=== PATIENT | female | born 1980 | race Caucasian/White ===

== ENCOUNTER 2018-06-24 10:17 | Inpatient (IN) | payer MEDICAID ==
[2018-06-24 11:50] LABS: ADD MAN DIFF? NO
[2018-06-24 11:54] LABS: BASOPHILS % 0.1 % (0.0-2.0); EOSINOPHILS % 0.3 % (0.0-7.0); HEMATOCRIT 36.1 % (37.0-47.0); HEMOGLOBIN 12.1 g/dl (12.0-16.0); LYMPHOCYTES # 1.4 10^3/ul (0.8-2.9); LYMPHOCYTES % 15.4 % (15.0-51.0); MEAN CORPUSCULAR HEMOGLOBIN 29.5 pg (29.0-33.0); MEAN CORPUSCULAR HGB CONC 33.5 g/dl (32.0-37.0); MEAN PLATELET VOLUME 12.5 fl (7.4-10.4); MONOCYTE # 0.5 10^3/ul (0.3-0.9); MONOCYTES % 6.1 % (0.0-11.0); NEUTROPHIL # 6.8 10^3/ul (1.6-7.5); NEUTROPHILS % 77.6 % (39.0-77.0); PLATELET COUNT 144 10^3/UL (140-415); RED CELL DISTRIBUTION WIDTH 13.6 % (11.5-14.5)
[2018-06-24 11:54] LABS: WHITE BLOOD COUNT 8.7 10^3/ul (4.8-10.8)
[2018-06-24 12:11] LABS: ALANINE AMINOTRANSFERASE 9 IU/L (13-69); ALBUMIN 3.4 g/dl (3.3-4.9); ALBUMIN/GLOBULIN RATIO 1.03; ALKALINE PHOSPHATASE 173 IU/L (42-121); ANION GAP 7 (5-13); ASPARTATE AMINO TRANSFERASE 23 IU/L (15-46); BILIRUBIN,INDIRECT 0.6 mg/dl (0-1.1); BILIRUBIN,TOTAL 0.6 mg/dl (0.2-1.3); BLOOD UREA NITROGEN 9 mg/dl (7-20); CALCIUM 9.4 mg/dl (8.4-10.2); CARBON DIOXIDE 24 mmol/L (21-31); CHLORIDE 107 mmol/L (97-110); CREATININE 0.47 mg/dl (0.44-1.00); Estimated GFR > 60 mL/min (>60); GLUCOSE 87 mg/dl (70-220); POTASSIUM 3.9 mmol/L (3.5-5.1); SODIUM 138 mmol/L (135-144); TOTAL PROTEIN 6.7 g/dl (6.1-8.1)
[2018-06-24 12:14] LABS: INR 0.95; PROTIME 12.8 Sec (11.9-14.9)
[2018-06-24 12:38] LABS: ADD UMIC YES; UR ASCORBIC ACID NEGATIVE (NEGATIVE); UR BACTERIA MODERATE /HPF (NONE SEEN); UR BILIRUBIN (Dip) NEGATIVE (NEGATIVE); UR BLOOD (Dip) NEGATIVE (NEGATIVE); UR CLARITY SLIGHTLY CLOUDY (CLEAR); UR COLOR YELLOW (YELLOW); UR GLUCOSE (Dip) NEGATIVE (NEGATIVE); UR KETONES (Dip) NEGATIVE (NEGATIVE); UR LEUKOCYTE ESTERASE (Dip) 1+ Leu/ul (NEGATIVE); UR NITRITE (Dip) NEGATIVE (NEGATIVE); UR RBC 4 /HPF (0-5); UR SPECIFIC GRAVITY (Dip) 1.006 (1.003-1.030); UR SQUAMOUS EPITHELIAL CELL MODERATE /HPF (FEW); UR TOTAL PROTEIN (Dip) NEGATIVE (NEGATIVE); UR UROBILINOGEN (Dip) NEGATIVE (NEGATIVE); UR WBC 7 /HPF (0-5)
[2018-06-24] MEDS ORDERED: LACTATED RINGER'S 1,000 ML IV (14:12)
[2018-06-24] MEDS ORDERED: OXYTOCIN 30 UNITS/LR 500 ML IV ×3 (14:30→22:00)
[2018-06-24] MEDS ORDERED: METHYLERGONOVINE 0.2 MG INJ IM ×2 (14:30→22:00)
[2018-06-24] MEDS ORDERED: MISOPROSTOL 200 MCG TAB PR ×2 (14:30→22:00)
[2018-06-24] MEDS ORDERED: LIDOCAINE 1% (MPF) 30 ML INJ INJ (14:30)
[2018-06-24] MEDS ORDERED: BUTORPHANOL 2 MG INJ IV (14:30)
[2018-06-24] MEDS ORDERED: CARBOPROST 250 MCG INJ IM ×2 (14:30→22:00)
[2018-06-24] MEDS: LACTATED RINGER'S 1,000 ML IV (15:31)
[2018-06-24] MEDS: AMPICILLIN 2 GM/NS (PMX) 100 ML IV (15:33)
[2018-06-24 16:58] LABS: RAPID PLASMA REAGIN NONREACTIVE (NR)
[2018-06-24] MEDS: MISOPROSTOL 50 MCG CAPSULE PO (17:00)
[2018-06-24] MEDS: AMPICILLIN 1 GM/NS (PMX) 50 ML IV (18:37)
[2018-06-24] MEDS: OXYTOCIN 30 UNITS/LR 500 ML IV ×3 (19:28→23:54)
[2018-06-24] MEDS: IBUPROFEN 600 MG TAB PO ×2 (19:49→23:49)
[2018-06-24] MEDS ORDERED: LACTATED RINGER'S 1,000 ML IV* (21:37)
[2018-06-24] MEDS ORDERED: ACETAMINOPHEN 325 MG TAB PO ×2 (22:00)
[2018-06-24] MEDS ORDERED: ONDANSETRON 4 MG INJ IV (22:00)
[2018-06-24] MEDS ORDERED: MAGNESIUM HYDROXIDE 30ML CUP PO (22:00)
[2018-06-24] MEDS: LACTATED RINGER'S 1,000 ML IV* (22:10)
[2018-06-24] MEDS: WITCH HAZEL/GLYCERIN PAD PR (23:58)
[2018-06-24] MEDS: DIBUCAINE 1% 30 GM OINT TOP (23:59)
[2018-06-24] MEDS: LANOLIN HPA 1 PKT TOP (23:59)
[2018-06-24] MEDS: BENZOCAINE 20% 56 ML SPRAY TOP (23:59)
[2018-06-25] MEDS: LACTATED RINGER'S 1,000 ML IV* (06:10)
[2018-06-25] MEDS: IBUPROFEN 600 MG TAB PO ×2 (06:14→17:12)
[2018-06-25 08:49] LABS: ADD MAN DIFF? NO
[2018-06-25 08:58] LABS: BASOPHILS % 0.2 % (0.0-2.0); EOSINOPHILS # 0.1 10^3/ul (0.0-0.5); EOSINOPHILS % 0.5 % (0.0-7.0); HEMATOCRIT 38.2 % (37.0-47.0); HEMOGLOBIN 12.5 g/dl (12.0-16.0); LYMPHOCYTES % 15.8 % (15.0-51.0); MEAN CORPUSCULAR HEMOGLOBIN 28.8 pg (29.0-33.0); MEAN CORPUSCULAR HGB CONC 32.7 g/dl (32.0-37.0); MONOCYTE # 0.8 10^3/ul (0.3-0.9); MONOCYTES % 6.2 % (0.0-11.0); NEUTROPHIL # 9.6 10^3/ul (1.6-7.5); NEUTROPHILS % 76.8 % (39.0-77.0); PLATELET COUNT 141 10^3/UL (140-415); RED BLOOD COUNT 4.34 10^6/ul (4.20-5.40); RED CELL DISTRIBUTION WIDTH 13.8 % (11.5-14.5)
[2018-06-25 08:58] LABS: WHITE BLOOD COUNT 12.4 10^3/ul (4.8-10.8)
[2018-06-25] MEDS: SENNA/DOCUSATE NA (8.6MG/50MG) TAB PO (10:22)
[2018-06-25] MEDS: LANOLIN HPA 1 PKT TOP (10:22)
== END 2018-06-26 20:15 | disposition home or self-care (01) | DRG 807 ==
LOC: OBT 10:17 → L-D 10:17 → OBT 14:13 → L-D 14:06 → PP1 22:03
PROC: 10E0XZZ Delivery of Products of Conception, External Approach (ICD-10-PCS; principal; 2018-06-24)
DX: O41.03X0 Oligohydramnios, third trimester, not applicable or unspecified (principal); Z37.0 Single live birth; O99.824 Streptococcus B carrier state complicating childbirth; Z3A.39 39 weeks gestation of pregnancy
CPT/HCPCS: 76815; 76818; 80053; 81001; 84560; 85025; 85384; 85610; 85730; 86592; 86850; 86900; 86901